=== PATIENT | male | born 1985 | race Caucasian/White ===

== ENCOUNTER 2018-04-19 08:03 | Emergency (ER) | payer SELFPAY ==
[~2018-04-19] VITALS: Ht 175.3 cm; Wt 160.9 kg
[2018-04-19 08:10] VITALS: Ht 175.3 cm; Wt 160.9 kg
[2018-04-19] MEDS ORDERED: ZESTORETIC 20-1 EACH PO (08:11)
[2018-04-19] MEDS ORDERED: ZYLOPRIM100 MG PO (08:12)
[2018-04-19 08:27] LABS: BASOPHILS 0.2 % (0-2); EOSINOPHILS 2.1 % (0-7); HEMATOCRIT 43.1 % (42.0-54.0); HEMOGLOBIN 14.7 g/dL (13.5-17.5); IMMATURE GRANULOCYTES 0.3 % (0-5); LYMPHOCYTES 35.2 % (15-50); MCH 30.5 pg (26.0-34.0); MCHC 34.1 g/dL (31.0-37.0); MCV 89.4 fL (80.0-100.0); MEAN PLATELET VOLUME 11.4 fL (7.4-10.4); MONOCYTES 8.2 % (2-11); PLATELET COUNT 196 10x3/uL (130-400); RBC 4.82 10x6/uL (4.20-6.10); RDW 13.4 % (11.5-14.5)
[2018-04-19 08:41] LABS: ALBUMIN 3.6 g/dL (3.4-5.0); ALKALINE PHOSPHATASE 65 U/L (46-116); ALT (SGPT) 28 U/L (10-68); BILIRUBIN - TOTAL 0.44 mg/dL (0.2-1.3); CALC OSMOLALITY 273 mosm/kg (275-300); CALCIUM 8.4 mg/dL (8.5-10.1); CARBON DIOXIDE 27.1 mmol/L (21.0-32.0); CHLORIDE - SERUM 102 mmol/L (98-107); CREATININE - SERUM 0.9 mg/dL (0.6-1.3); GLUCOSE 100 mg/dL (74-106); POTASSIUM - SERUM 3.9 mmol/L (3.5-5.1); SODIUM 137 mmol/L (136-145); UREA NITROGEN 12 mg/dL (7-18); eGFR NON AFRICAN AMERICAN > 90 mL/min (90-120)
[2018-04-19 08:53] LABS: CREATINE KINASE 83 UL (21-232); LIPASE 201 U/L (73-393); PRO BNP 13 pg/mL (0-125); THYROID STIMULATING HORMONE 2.27 uIU/mL (0.36-3.74); TROPONIN-I < 0.017 ng/mL (0.000-0.060)
[2018-04-19 10:18] VITALS: BP 128/78
== END 2018-04-19 10:22 | disposition home or self-care (01) ==
LOC: D.ER 08:03
PROVIDERS: Family Medicine
DX: R00.2 Palpitations (principal); I10 Essential (primary) hypertension; F17.200 Nicotine dependence, unspecified, uncomplicated

== ENCOUNTER 2019-08-05 10:14 | Emergency (ER) | payer SELFPAY ==
[~2019-08-05] VITALS: Ht 175.3 cm; Wt 172.7 kg
[~2019-08-05 10:14] MED LIST: ZESTORETIC 20-1 EACH PO; ZYLOPRIM100 MG PO
[2019-08-05 10:40] VITALS: Ht 175.3 cm; Wt 172.7 kg
[2019-08-05] MEDS ORDERED: VOLTAREN75 MG PO (12:09)
[2019-08-05 13:01] VITALS: BP 128/79
== END 2019-08-05 13:02 | disposition home or self-care (01) ==
LOC: D.ER 10:14
DX: M25.561 Pain in right knee (principal); S83.91XA Sprain of unspecified site of right knee, initial encounter; X58.XXXA Exposure to other specified factors, initial encounter